=== PATIENT | male | born 1950 | race Caucasian/White ===

== ENCOUNTER 2019-03-07 23:44 | Emergency (ER) | payer MEDICARE, OTHER ==
[2019-03-07 23:55] VITALS: BP 153/119; PULSE 74
[2019-03-08] MEDS: Sodium Chloride 0.9% 10 ML Syringe FLUSH PRN (00:03)
[2019-03-08 00:20] LABS: CHLORIDE,CL 97 mmol/L (101-111); SODIUM,NA 134 mmol/L (135-145)
--- NOTE | 2019-03-08 01:17 | EDM.PDOC ---
ED HPI GENERAL MEDICAL PROBLEM - General Chief Complaint: Chest Pain Stated Complaint: CHEST PAIN Time Seen by Provider: 03/07/19 23:47 Source of Information: Reports: RN, RN Notes Reviewed History Limitations: Reports: No Limitations - History of Present Illness INITIAL COMMENTS - FREE TEXT/NARRATIVE: Patient is a 68-year-old gentleman who presents with complaints of chest pain that began about 10 hours ago. The patient reports pain started when he woke up in the morning. Initially it was his back that was hurting and progressed into his chest. Chest pain was noted when he was sitting in the recliner at home, but he reports it subsided and he took a nap. He was not specific about where the pain was in his chest, but states he feels weird when he woke up. He admits going to work and doing his normal daily activity. He reports when he laid down to sleep he started having anxiety about having a heart attack. Rates pain as a 4/10 and reports it as aching. Denies any radiation of pain, nausea or diaphoresis. Denies the elephant type of chest pain. He keeps stating "I just feel weird". He has a history of hypertension and Norvasc and Metoprolol daily. He reports taking Aleve, but states it must have as it has been in his cupboard for 3 years. Denies any history of cardiovascular disease in his family. Chest pain protocol initiated. Patient denies shortness of breath, palpitations, leg swelling, headaches, dizziness at this time. Mid-Sternal Chest Pain Score (Numeric/FACES): 4 - Related Data Allergies Allergy/AdvReac Type Severity Reaction Status Date / Time No Known Allergies Allergy Verified 03/08/19 16:00 Home Meds: Home Meds amLODIPine [Norvasc] 5 mg PO DAILY 07/13/15 [History] Past Medical History HEENT History: Reports: Other (See Below) Other HEENT History: HX OF TONSILLITIS Cardiovascular History: Reports: Hypertension, Other (See Below) Other Cardiovascular History: ARTERIOVENOUS MALFORMATION Respiratory History: Reports: Other (See Below) Other Respiratory History: POST BRONCHITIS Gastrointestinal History: Reports: Gastritis, Other (See Below) Other Gastrointestinal History: ELEVATED LIVER ENZYMES; Genitourinary History: Reports: Other (See Below) Other Genitourinary History: ERECTILE DYSFUNCTION; URETHRITIS Musculoskeletal History: Reports: Fracture Other Musculoskeletal History: HX OF FIBULA FRACTURE Neurological History: Reports: None Psychiatric History: Reports: None Endocrine/Metabolic History: Reports: None Hematologic History: Reports: None Immunologic History: Reports: None Oncologic (Cancer) History: Reports: None Dermatologic History: Reports: None - Infectious Disease History Infectious Disease History: Other Infectious Disease History: UNKNOWN - Past Surgical History Head Surgeries/Procedures: Reports: None Cardiovascular Surgical History: Reports: Vascular Surgery GI Surgical History: Reports: Colonoscopy, Other (See Below) Musculoskeletal Surgical History: Reports: Arthroscopic Knee Social & Family History - Family History Family Medical History: Noncontributory - Tobacco Use Smoking Status *Q: Current Every Day Smoker Years of Tobacco use: 47 Packs/Tins Daily: 1 - Caffeine Use Caffeine Use: Reports: Soda - Alcohol Use Alcohol Use History: No - Recreational Drug Use Recreational Drug Use: No ED ROS GENERAL - Review of Systems Review Of Systems: ROS reveals no pertinent complaints other than HPI. ED EXAM, GENERAL - Physical Exam Exam: See Below Exam Limited By: No Limitations General Appearance: Alert, WD/WN, No Apparent Distress Eye Exam: Bilateral Eye: EOMI, Normal Inspection, PERRL Ears: Normal External Exam, Normal Canal, Hearing Grossly Normal, Normal TMs Nose: Normal Inspection, Normal Mucosa, No Blood Throat/Mouth: Normal Inspection, Normal Lips, Normal Teeth, Normal Gums, Normal Oropharynx, Normal Voice, No Airway Compromise Head: Atraumatic, Normocephalic Neck: Normal Inspection, Supple, Non-Tender, Full Range of Motion Respiratory/Chest: No Respiratory Distress, Lungs Clear, Normal Breath Sounds, No Accessory Muscle Use, Chest Non-Tender Cardiovascular: No Edema, No Gallop, No JVD, No Murmur, Other (irregular, normal heart rate.) Peripheral Pulses: 3+: Radial (L), Radial (R), Posterior Tibial (L), Posterior Tibial (R), Dorsalis Pedis (L), Dorsalis Pedis (R) Course - Vital Signs Last Recorded V/S: Last Vital Signs Temp 97 F 03/07/19 23:49 Pulse 74 03/07/19 23:49 Resp 20 03/07/19 23:49 BP 153/119 H 03/07/19 23:49 Pulse Ox 100 03/07/19 23:49 - Orders/Labs/Meds Orders: Active Orders 24 hr Category Date Time Status Cardiac Education [RC] Click to Edit Care 03/07/19 23:49 Active Cardiac Monitoring [RC] . DIRECTED Care 03/07/19 23:49 Active EKG Documentation Completion [RC] STAT Care 03/07/19 23:49 Active Notify Provider Vital Signs [RC] ASDIRECTED Care 03/07/19 23:48 Active Peripheral IV Care [RC] . DIRECTED Care 03/07/19 23:50 Active Peripheral IV Insertion Adult [OM.PC] Routine Oth 03/07/19 23:48 Ordered Labs: Laboratory Tests 03/07/19 03/07/19 Range/Units 23:55 23:55 WBC 11.4 H (5.0-10.0) 10^3/uL RBC 5.36 (4.6-6.2) 10^6/uL Hgb 18.6 H (14.0-18.0) g/dL Hct 52.9 (40.0-54.0) % MCV 98.7 (80-100) fL MCH 34.7 H (27.0-34.0) pg MCHC 35.2 H (33.0-35.0) g/dL Plt Count 201 (150-450) 10^3/uL Sodium 134 L (135-145) mmol/L Potassium 5.0 (3.6-5.0) mmol/L Chloride 97 L (101-111) mmol/L Carbon Dioxide 28.0 (21.0-31.0) mmol/L Anion Gap 14.0 BUN 13 (7-18) mg/dL Creatinine 1.1 (0.6-1.3) mg/dL Est Cr Clr Drug Dosing 61.32 mL/min Estimated GFR (MDRD) > 60 BUN/Creatinine Ratio 11.81 Glucose 121 H (74-105) mg/dL Calcium 8.7 (8.4-10.2) mg/dl Total Bilirubin 1.6 H (0.2-1.0) mg/dL AST 34 (10-42) IU/L ALT 27 (10-60) IU/L Alkaline Phosphatase 79 (42-121) IU/L Troponin I < 0.02 (0.00-0.02) ng/ml Total Protein 7.5 (6.7-8.2) g/dl Albumin 3.9 (3.2-5.5) g/dl Globulin 3.6 Albumin/Globulin Ratio 1.08 Meds: Medications Discontinued Medications Generic Name Dose Route Start Last Admin Trade Name Rosana PRN Reason Stop Dose Admin Sodium Chloride 10 ml 03/07/19 23:48 03/08/19 00:03 Saline Flush FLUSH 10 ml ASDIRECTED PRN Administration Keep Vein Open - Radiology Interpretation Free Text/Narrative:: Chest x-ray showed no acute findings. - Re-Assessments/Exams Free Text/Narrative Re-Assessment/Exam: A 68-year-old male who presented with complaints of mild chest pain. Blood pressure was elevated initially in the 150s/100 and was down in the 140s/90. Patient's exam revealed a irregular heart beat. He denies any history of cardiovascular disease except being diagnosed with hypertension, which is being managed with his home medications. Chest pain resolved while patient was waiting for lab results. Lab results reviewed with patient with CBC showing mild leukocytosis and mildly elevated hemoglobin. There was no fever or underlying infection to correlate with mild leukocytosis. Patient is also noted to be a smoker and with the elevated hemoglobin, he might also be dehydrated. CMP showed mild hyponatremia. EKG showed sinus bradycardia at 57 and PVC's, but again his heart rate was irregular. Troponin was negative. The differential diagnosis are wide but not limited to angina, chest wall pain, arrhythmia. I think this is unlikely an CT considering the fact the patient has had symptoms for more than 10 hours and his cardiac marker is negative. Departure - Departure Time of Disposition: 01:12 Disposition: Home, Self-Care 01 Condition: Good Clinical Impression: Chest pain of unknown etiology, Hyponatremia, Elevated hemoglobin Instructions: Nonspecific Chest Pain, [id number] Referrals: PCP,None [Primary Care Provider] - Forms: ED Department Discharge Care Plan Goals: Reviewed results with patient and EKG. BP down in the 140/80. Patient reports resolution of pain. Recommended follow up in the clinic with PCP or return to the ER if symptoms worsens. - My Orders Last 24 Hours: My Active Orders 03/07/19 23:48 Notify Provider Vital Signs [RC] ASDIRECTED Peripheral IV Insertion Adult [OM.PC] Routine 03/07/19 23:49 Cardiac Education [RC] Click to Edit Cardiac Monitoring [RC] . DIRECTED EKG Documentation Completion [RC] STAT 03/07/19 23:50 Peripheral IV Care [RC] . DIRECTED - Assessment/Plan Last 24 Hours: My Active Orders 03/07/19 23:48 Notify Provider Vital Signs [RC] ASDIRECTED Peripheral IV Insertion Adult [OM.PC] Routine 03/07/19 23:49 Cardiac Education [RC] Click to Edit Cardiac Monitoring [RC] . DIRECTED EKG Documentation Completion [RC] STAT 03/07/19 23:50 Peripheral IV Care [RC] . DIRECTED
== END 2019-03-08 01:27 | disposition home or self-care (01) ==
LOC: DL.ED 23:44
DX: R07.9 Chest pain, unspecified (principal); R71.8 Other abnormality of red blood cells; E87.1 Hypo-osmolality and hyponatremia; I10 Essential (primary) hypertension; F17.210 Nicotine dependence, cigarettes, uncomplicated; Z79.899 Other long term (current) drug therapy
CPT/HCPCS: 36415; 71045; 80053; 84484; 85027; 93005; 99285-25

== ENCOUNTER 2019-03-08 15:53 | Emergency (ER) | payer MEDICARE, OTHER ==
[2019-03-08] MEDS: Sodium Chloride 0.9% 10 ML Syringe FLUSH PRN (16:12)
[2019-03-08] MEDS: Aspirin 81 MG Tab.Chew PO ONE (16:27)
[2019-03-08] MEDS: Aspirin 81 MG Tab.Chew ONE (16:35)
[2019-03-08 16:39] LABS: ANION GAP 14.7; CHLORIDE,CL 98 mmol/L (101-111); SODIUM,NA 131 mmol/L (135-145)
--- NOTE | 2019-03-08 16:48 | CR ---
EXAMINATION: Chest 1V Frontal SEX: Male AGE: 68 years CLINICAL HISTORY: 68-year-old male emergency department complaining of chest pain. (Past history hypertension and smoking) INTERPRETATION: Upright AP portable chest (rotated). External youth nutritional monitor leads. No acute new cardiopulmonary abnormality since comparison film 15 hours earlier today or since [place] film of October 2006. Normal cardiac silhouette without cephalization of vascular flow, alveolar edema or dependent pleural fluid accumulation. No new lung mass, hilar lymphadenopathy or focal lobar pneumonia. No atelectasis/collapse. No pneumothorax. CONCLUSION: No acute new cardiopulmonary abnormality.
[2019-03-08] MEDS: Lactated Ringers 1,000 ML IV ONE (17:20)
[2019-03-08 18:15] VITALS: BP 173/124; PULSE 71
--- NOTE | 2019-03-08 18:16 | EDM.PDOC ---
Scribed by Denise Sow 03/08/19 [id number] for Chinyere Molina NP ED HPI GENERAL MEDICAL PROBLEM - General Chief Complaint: Chest Pain Stated Complaint: IRREGULAR HEART RATE, CHEST PAIN Time Seen by Provider: 03/08/19 16:30 Source of Information: Reports: Patient, RN, RN Notes Reviewed History Limitations: Reports: No Limitations - History of Present Illness INITIAL COMMENTS - FREE TEXT/NARRATIVE: Patient presents to ER from [facility] with complaint of irregular heart beat and chest pain. On Thursday A.M. he had chest pain and not feeling well. He has tightness in chest and rates his pain 3-4/10 and nausea. At 10 P.M. last night he was very uncomfortable and came to the ER. Now he is lightheaded, nausea and has chest pain. No vomiting, diarrhea, shortness of breath, fever, chills or cough. HE denies pain at this time. Onset: Gradual Duration: Getting Worse Location: Reports: Chest Quality: Reports: Ache Severity: Moderate Improves with: Reports: None Worsens with: Reports: None Associated Symptoms: Reports: No Other Symptoms - Related Data Allergies Allergy/AdvReac Type Severity Reaction Status Date / Time No Known Allergies Allergy Verified 03/08/19 16:00 Home Meds: Home Meds amLODIPine [Norvasc] 5 mg PO DAILY 07/13/15 [History] Past Medical History HEENT History: Reports: Glaucoma, Other (See Below) Other HEENT History: HX OF TONSILLITIS Cardiovascular History: Reports: Hypertension, Other (See Below) Other Cardiovascular History: ARTERIOVENOUS MALFORMATION Respiratory History: Reports: Other (See Below) Other Respiratory History: POST BRONCHITIS Gastrointestinal History: Reports: Gastritis, Other (See Below) Other Gastrointestinal History: ELEVATED LIVER ENZYMES; Genitourinary History: Reports: Other (See Below) Other Genitourinary History: ERECTILE DYSFUNCTION; URETHRITIS Musculoskeletal History: Reports: Back Pain, Chronic, Fracture Other Musculoskeletal History: HX OF FIBULA FRACTURE Neurological History: Reports: None Psychiatric History: Reports: None Endocrine/Metabolic History: Reports: None Hematologic History: Reports: None Immunologic History: Reports: None Oncologic (Cancer) History: Reports: None Dermatologic History: Reports: None - Infectious Disease History Infectious Disease History: Reports: Chicken Pox Other Infectious Disease History: UNKNOWN - Past Surgical History Head Surgeries/Procedures: Reports: None Cardiovascular Surgical History: Reports: Vascular Surgery GI Surgical History: Reports: Colonoscopy, Other (See Below) Musculoskeletal Surgical History: Reports: Arthroscopic Knee Social & Family History - Family History Family Medical History: Noncontributory - Tobacco Use Smoking Status *Q: Current Every Day Smoker Years of Tobacco use: 40 Packs/Tins Daily: 1 Used Tobacco, but Quit: No Second Hand Smoke Exposure: No - Caffeine Use Caffeine Use: Reports: Soda - Recreational Drug Use Recreational Drug Use: No ED ROS GENERAL - Review of Systems Review Of Systems: ROS reveals no pertinent complaints other than HPI. ED EXAM, GENERAL - Physical Exam Exam: See Below Exam Limited By: No Limitations General Appearance: Alert, WD/WN, No Apparent Distress Eye Exam: Bilateral Eye: EOMI, Normal Inspection, PERRL Ears: Normal External Exam, Normal Canal, Hearing Grossly Normal, Normal TMs Nose: Normal Inspection, Normal Mucosa, No Blood Throat/Mouth: Normal Inspection, Normal Lips, Normal Teeth, Normal Gums, Normal Oropharynx, Normal Voice, No Airway Compromise Head: Atraumatic, Normocephalic Neck: Normal Inspection, Supple, Non-Tender, Full Range of Motion Respiratory/Chest: Crackles (diminished crackles bases bilaterally) Cardiovascular: Irregularly Irregular GI/Abdominal: Normal Bowel Sounds, Soft, Non-Tender, No Organomegaly, No Distention, No Abnormal Bruit, No Mass (Male) Exam: Deferred Rectal (Males) Exam: Deferred Back Exam: Decreased Range of Motion Extremities: Normal Inspection, Normal Range of Motion, Non-Tender, Normal Capillary Refill, No Pedal Edema Neurological: Alert, Oriented, CN II-XII Intact, Normal Cognition, Normal Gait, Normal Reflexes, No Motor/Sensory Deficits Psychiatric: Normal Affect, Normal Mood Skin Exam: Warm, Dry, Intact, Normal Color, No Rash Lymphatic: No Adenopathy Course - Vital Signs Last Recorded V/S: Last Vital Signs Temp 97.1 F 03/08/19 18:13 Pulse 71 03/08/19 18:13 Resp 20 03/08/19 18:13 BP 173/124 H 03/08/19 18:13 Pulse Ox 97 03/08/19 18:13 - Orders/Labs/Meds Orders: Active Orders 24 hr Category Date Time Status EKG Documentation Completion [RC] STAT Care 03/08/19 16:00 Active Peripheral IV Care [RC] . DIRECTED Care 03/08/19 16:00 Active Sodium Chloride 0.9% [Saline Flush] Med 03/08/19 15:59 Active 10 ml FLUSH ASDIRECTED PRN Peripheral IV Insertion Adult [OM.PC] Stat Oth 03/08/19 15:59 Ordered Medication Orders Sodium Chloride (Saline Flush) 10 ml FLUSH ASDIRECTED PRN PRN Reason: Keep Vein Open Last Admin: 03/08/19 16:12 Dose: 10 ml Labs: Laboratory Tests 03/08/19 03/08/19 03/08/19 Range/Units 16:08 16:08 16:08 WBC 13.0 H (5.0-10.0) 10^3/uL RBC 5.48 (4.6-6.2) 10^6/uL Hgb 19.0 H (14.0-18.0) g/dL Hct 52.5 (40.0-54.0) % MCV 95.8 (80-100) fL MCH 34.7 H (27.0-34.0) pg MCHC 36.2 H (33.0-35.0) g/dL Plt Count 207 (150-450) 10^3/uL Neut % (Auto) 74.2 (42.2-75.2) % Lymph % (Auto) 11.6 L (20.5-50.1) % [place] % (Auto) 13.1 H (2-8) % Eos % (Auto) 0.7 L (1.0-3.0) % Baso % (Auto) 0.4 (0.0-1.0) % PT 10.5 (9.0-12.0) SEC INR 1.0 (0.9-1.2) Sodium 131 L (135-145) mmol/L Potassium 3.7 (3.6-5.0) mmol/L Chloride 98 L (101-111) mmol/L Carbon Dioxide 22.0 (21.0-31.0) mmol/L Anion Gap 14.7 BUN 12 (7-18) mg/dL Creatinine 0.9 (0.6-1.3) mg/dL Est Cr Clr Drug Dosing 74.94 mL/min Estimated GFR (MDRD) > 60 BUN/Creatinine Ratio 13.33 Glucose 109 H (74-105) mg/dL Calcium 9.4 (8.4-10.2) mg/dl Total Bilirubin 1.6 H (0.2-1.0) mg/dL AST 22 (10-42) IU/L ALT 25 (10-60) IU/L Alkaline Phosphatase 79 (42-121) IU/L Troponin I < 0.02 (0.00-0.02) ng/ml Total Protein 7.7 (6.7-8.2) g/dl Albumin 4.1 (3.2-5.5) g/dl Globulin 3.6 Albumin/Globulin Ratio 1.14 Meds: Medications Generic Name Dose Route Start Last Admin Trade Name Freq PRN Reason Stop Dose Admin Sodium Chloride 10 ml 03/08/19 15:59 03/08/19 16:12 Saline Flush FLUSH 10 ml ASDIRECTED PRN Administration Keep Vein Open Discontinued Medications Generic Name Dose Route Start Last Admin Trade Name Freq PRN Reason Stop Dose Admin Aspirin 324 mg 03/08/19 16:24 03/08/19 16:27 Aspirin PO 03/08/19 16:25 324 mg ONETIME ONE Administration Aspirin Confirm 03/08/19 16:30 03/08/19 16:35 Aspirin Administered 03/08/19 16:31 Not Given Dose 81 mg .ROUTE .STK-MED ONE Lactated Ringer's 1,000 mls @ 999 mls/hr 03/08/19 17:08 03/08/19 18:27 Ringers, Lactated IV 03/08/19 18:08 Infused .BOLUS ONE Infusion - Radiology Interpretation Free Text/Narrative:: chest xray: No acute new cardiopulmonary abnormality See rad report - Re-Assessments/Exams Free Text/Narrative Re-Assessment/Exam: 03/08/19 18:13 Discussed patient case with Dr. Bray who agreed to accept the patient for transfer to [facility]. Departure - Departure Time of Disposition: 18:39 Disposition: DC/Tfer to Acute Hospital 02 Reason for Transfer *Q: Other Condition: Fair Clinical Impression: Acute coronary syndrome, Polycythemia, Tobacco abuse, Alcohol abuse Chest pain Qualifiers: Chest pain type: unspecified Qualified Code(s): R07.9 - Chest pain, unspecified Hypertension Qualifiers: Hypertension type: essential hypertension Qualified Code(s): I10 - Essential ( primary) hypertension Forms: ED Department Discharge, Interfacility Transfer EMTALA - My Orders Last 24 Hours: My Active Orders 03/08/19 15:59 Sodium Chloride 0.9% [Saline Flush] 10 ml FLUSH ASDIRECTED PRN Peripheral IV Insertion Adult [OM.PC] Stat 03/08/19 16:00 EKG Documentation Completion [RC] STAT Peripheral IV Care [RC] . DIRECTED - Assessment/Plan Last 24 Hours: My Active Orders 03/08/19 15:59 Sodium Chloride 0.9% [Saline Flush] 10 ml FLUSH ASDIRECTED PRN Peripheral IV Insertion Adult [OM.PC] Stat 03/08/19 16:00 EKG Documentation Completion [RC] STAT Peripheral IV Care [RC] . DIRECTED I have read and agree with the documentation that has been completed regarding this visit. By signing this record, I attest that the documentation was completed in my physical presence and is an accurate record of the encounter.
== END 2019-03-08 18:45 ==
LOC: DL.ED 15:53
DX: I24.9 Acute ischemic heart disease, unspecified (principal); D75.1 Secondary polycythemia; F10.10 Alcohol abuse, uncomplicated; I10 Essential (primary) hypertension; F17.210 Nicotine dependence, cigarettes, uncomplicated; Z79.899 Other long term (current) drug therapy
CPT/HCPCS: 36415; 71045; 80053; 84484; 85025; 85379; 85610; 93005; 96360; 99285-25; A9270-GY; J7120